=== PATIENT | female | born 1995 ===

== ENCOUNTER 2016-10-12 20:20 | Emergency (ER) | payer MEDICAID ==
[2016-10-12 20:30] VITALS: BMI 19.7
[2016-10-12 20:34] VITALS: TEMP 99
[2016-10-12] MEDS ORDERED: Sodium Chloride 0.9% 1,000 ML IV STA (21:16)
[2016-10-12 21:39] LABS: MEAN CELL VOLUME 81.5 fL (80.0-105.0); MEAN CORPUSCULAR HEMOGLOBIN 27.5 pg (25.0-35.0); MEAN CORPUSCULAR HGB CONC 33.7 g/dl (31.0-37.0); MEAN PLATELET VOLUME 10.7 fl (7.0-11.0); PLATELET COUNT 236 10^3/uL (120.0-450.0); RBC 4.37 10^6/uL (3.5-6.1); RED CELL DISTRIBUTION WIDTH 17.6 % (11.5-14.5); WHITE BLOOD COUNT 19.9 10^3/ul (4.5-11.0)
--- NOTE | 2016-10-12 21:46 | ED PDOC ---
Arrival/HPI - General Chief Complaint: Dizziness/Lightheaded Time Seen by Provider: 10/12/16 20:44 Historian: Patient - History of Present Illness Narrative History of Present Illness (Text): 10/12/16 21:35 A 21 year old female, with currently 14 weeks , presents to the emergency department complaining of dizziness described as lightheadedness, not vertigo, for the past few days. Patient reports her symptom has been constant today causing her to come in for further evaluation. Patient reports having a near-syncopal episode a few days ago and one today. She notes decrease appetite and fluid intake due to her nausea. Patient denies any loss of consciousness, head trauma, fever, chills, vomiting, diarrhea, abdominal pain, urinary symptoms , vaginal bleeding, chest pain, palpitations, shortness of breath or any other complaints. Time/Duration: Other (few days) Symptom Course: Unchanged Quality: Other Context: Home Past Medical History - Provider Review Nursing Documentation Reviewed: Yes - Infectious Disease Hx of Infectious Diseases: None - Genitourinary/Gynecological Hx Sexually Transmitted Diseases: Yes (Trich.) - Psychiatric Hx Substance Use: No - Anesthesia Hx Anesthesia: No Family/Social History - Physician Review Nursing Documentation Reviewed: Yes Family/Social History: No Known Family HX Smoking Status: Former Smoker Hx Alcohol Use: No Hx Substance Use: No Allergies/Home Meds Allergies/Adverse Reactions: Allergies No Known Allergies Allergy (Verified 10/12/16 20:30) Review of Systems - Physician Review All systems were reviewed & negative as marked: Yes - Review of Systems Constitutional: absent: Fevers, Night Sweats Respiratory: absent: SOB Cardiovascular: Other (2 near-syncopal episodes). absent: Chest Pain, Palpitations Gastrointestinal: Nausea, Appetite Changes (/fluids intake). absent: Abdominal Pain, Diarrhea, Vomiting Genitourinary Female: absent: Dysuria, Frequency, Hematuria, Urine Output Changes, Vaginal Bleeding Neurological: Dizziness Physical Exam Vital Signs Reviewed: Yes Vital Signs Temp Pulse Resp BP Pulse Ox 10/13/16 00:37 85 18 120/75 99 10/12/16 22:37 85 18 118/72 98 10/12/16 20:33 99.0 F 88 19 116/69 96 Temperature: Afebrile Blood Pressure: Normal Pulse: Regular Respiratory Rate: Normal Appearance: Positive for: Well-Appearing, Non-Toxic, Comfortable Pain Distress: None Mental Status: Positive for: Alert and Oriented X 3 Finger Stick Blood Glucose: 107 - Systems Exam Head: Present: Atraumatic, Normocephalic, Other (Sunken eyes) Pupils: Present: PERRL Extroacular Muscles: Present: EOMI Conjunctiva: Present: Normal Mouth: Present: Dry Neck: Present: Normal Range of Motion Respiratory/Chest: Present: Clear to Auscultation, Good Air Exchange. No: Respiratory Distress, Accessory Muscle Use Cardiovascular: Present: Regular Rate and Rhythm, Normal S1, S2. No: Murmurs Abdomen: Present: Normal Bowel Sounds. No: Tenderness, Distention, Peritoneal Signs Back: Present: Normal Inspection Upper Extremity: Present: Normal Inspection. No: Cyanosis, Edema Lower Extremity: Present: Normal Inspection. No: Edema Neurological: Present: GCS=15, CN II-XII Intact, Speech Normal Skin: Present: Warm, Dry, Normal Color. No: Rashes Psychiatric: Present: Alert, Oriented x 3, Normal Insight, Normal Concentration Medical Decision Making ED Course and Treatment: 10/12/16 21:35 Impression: A 21 year old female 14 weeks with dizziness. Patient notes having near -syncopal episode and decrease appetite/fluid intake due to nausea. Differential diagnosis : dehydration, hypoglycemia, anemia Plan: -- EKG -- Labs -- Urine culture and Urinalysis -- Zofran and IV fluids -- Reassess and disposition Progress Notes: EKG: NSR at 87 bpm, (-) acute ST changes, as read by PA. On reevaluation, patient reports significant improvement of her symptoms. She denies any dizziness, headache, chest pain, abdominal pain, nausea, vaginal bleeding at this time. Patient reports that she is hungry at this time and would like to try to eat. On exam, patient is laying in bed comfortably, lungs are clear to auscultation, cardiac regular rate and rhythm, abdomen soft with no tenderness. Patient given crackers. Labs reviewed : WBC is 19 (likely due to dehydration), K3.4, UA shows evidence of UTI, urine culture sent. Patient medicated with Rocephin 1 g IV. Patient informed of likely diagnosis of near syncope due to dehydration, all related to nausea and decreased appetite. Patient tolerating crackers and by mouth fluids in the emergency room. Patient advised to follow up with her DIVE SUPERVISOR in 1-2 days without fail. Advised to take medication as prescribed. Return to the emergency room at any time for any new or worsening symptoms. Advised to f/u elevated WBC with her OB. Patient states she fully agrees with and understands discharge instructions. States that she agrees with the plan and disposition. Verbalized and repeated discharge instructions and plan. I have given the patient opportunity to ask any additional questions. - Lab Interpretations Lab Results: 10/12/16 21:00 10/12/16 21:00 Lab Results 10/12/16 22:10: Urine Color Yellow, Urine Appearance Clear, Urine pH 6.5, Ur Specific Lyn[place] 1.010, Urine Protein Negative, Urine Glucose (UA) Negative, Urine Ketones Trace H, Urine Blood Negative, Urine Nitrate Negative, Urine Bilirubin Negative, Urine Urobilinogen 0.2, Ur Leukocyte Esterase Trace H, Urine RBC 0 - 2, Urine WBC 2 - 5, Ur Epithelial Cells 3 - 4, Urine Bacteria Rare 10/12/16 21:00: Sodium 136, Potassium 3.4 L, Chloride 100, Carbon Dioxide 22, Anion Gap 17, BUN 6 L, Creatinine 0.5, Est GFR ( Amer) > 60, Est GFR (Non -Af Amer) > 60, Random Glucose 90, Calcium 9.8, Total Bilirubin 0.5, AST 17, ALT 19, Alkaline Phosphatase 70, Total Protein 8.1, Albumin 4.3, Globulin 3.7, Albumin/Globulin Ratio 1.2, Lipase 62 10/12/16 21:00: WBC 19.9 H, RBC 4.37, Hgb 12.0, Hct 35.6 L, MCV 81.5, MCH 27.5, MCHC 33.7, RDW 17.6 H, Plt Count 236, MPV 10.7, Neutrophils % (Manual) 84 H, Lymphocytes % (Manual) 10 L, Monocytes % (Manual) 6, Platelet Evaluation Normal I have reviewed the lab results: Yes - Medication Orders Current Medication Orders: Discontinued Medications Sodium Chloride (Sodium Chloride 0.9%) 1,000 mls @ 1,000 mls/hr IV .Q1H STA Stop: 10/12/16 22:15 Last Admin: 10/12/16 21:39 Dose: 1,000 mls/hr Ceftriaxone Sodium (Rocephin 1 Gram Ivpb) 1 gm in 100 mls @ 200 mls/hr IVPB STAT STA PRN Reason: Protocol Stop: 10/12/16 23:36 Last Admin: 10/12/16 23:56 Dose: 200 mls/hr Ondansetron HCl (Zofran Inj) 4 mg IVP STAT STA Stop: 10/12/16 21:17 Last Admin: 10/12/16 21:38 Dose: 4 mg - PA / FOAM RUBBER MIXER / Resident Statement MD/DO has reviewed & agrees with the documentation as recorded. - Scribe Statement The provider has reviewed the documentation as recorded by the Scribe Melida Bright Provider Scribe Attestation: All medical record entries made by the Scribe were at my direction and personally dictated by me. I have reviewed the chart and agree that the record accurately reflects my personal performance of the history, physical exam, medical decision making, and the department course for this patient. I have also personally directed, reviewed, and agree with the discharge instructions and disposition. Disposition/Present on Arrival - Present on Arrival Any Indicators Present on Arrival: No History of DVT/PE: No History of Uncontrolled Diabetes: No Urinary Catheter: No History of Decub. Ulcer: No History Surgical Site Infection Following: None - Disposition Have Diagnosis and Disposition been Completed?: Yes Diagnosis: Near syncope, Dehydration, Nausea Disposition: HOME/ ROUTINE Disposition Time: 00:03 Patient Plan: Discharge Condition: STABLE Discharge Instructions (ExitCare): Dehydration (ED), Near Syncope (ED) Print Language: SOMALI Additional Instructions: Thank you for letting us take care of you today. You were treated for near syncope, dehydration, nausea related to . The emergency medical care you received today was directed at your acute symptoms. If you were prescribed any medication, please fill it and take as directed. It may take several days for your symptoms to resolve. Return to the Emergency Department if your symptoms worsen, do not improve, or if you have any other problems. Please contact your OB doctor in 2 days for re-evaluation and follow up. Bring any paperwork you were given at discharge with you along with any medications you are taking to your follow up visit. Our treatment cannot replace ongoing medical care by a primary care provider (PCP) outside of the emergency department. Thank you for allowing the [facility] team to be part of your care today. Prescriptions: Metoclopramide HCl [Reglan] 10 mg PO QID PRN #20 tablet PRN Reason: Nausea/Vomiting Nitrofurantoin Macrocrystals [Macrobid] 100 mg PO BID #20 cap Referrals: PCP,NO [Primary Care Provider] - Follow up with primary Forms: [employer] ([place]), WORK NOTE
[2016-10-12 21:48] LABS: ALB/GLOB RATIO 1.2 (1.1-1.8); ALBUMIN 4.3 g/dL (3.0-4.8); ALT/SGPT 19 U/L (7-56); AST/SGOT 17 U/L (15-39); BLOOD UREA NITROGEN 6 mg/dL (7-21); CALCIUM 9.8 mg/dL (8.4-10.5); GFR AFRICAN-AMERICAN > 60; GFR NON-AFRICAN AMERICAN > 60; LIPASE 62 U/L (23-300)
[2016-10-12 22:17] LABS: LYMPHOCYTE 10 % (22.0-35.0); MONOCYTE 6 % (1.0-6.0); NEUTROPHIL 84 % (50.0-70.0); PLATELET ESTIMATE NORMAL (NORMAL)
[2016-10-12 22:31] LABS: PH,URINE 6.5 (4.7-8.0); URINE BILIRUBIN NEGATIVE (NEGATIVE); URINE BLOOD NEGATIVE (NEGATIVE); URINE GLUCOSE (UA) NEGATIVE (NEGATIVE); URINE LEUKOCYTE ESTERASE TRACE Leu/uL (NEGATIVE); URINE NITRATE NEGATIVE (NEGATIVE); URINE PROTEIN NEGATIVE mg/dL (<30 mg/dL); URINE UROBILINOGEN 0.2 E.U./dL (<1 E.U./dL)
[2016-10-12 22:33] LABS: URINE APPEARANCE CLEAR (CLEAR); URINE COLOR YELLOW (YELLOW)
[2016-10-12 22:38] VITALS: PULSE 85; RESP 18
[2016-10-12 22:45] LABS: URINE BACTERIA RARE (NEG); URINE RBC 0 - 2 /hpf (0-2)
[2016-10-12] MEDS ORDERED: cefTRIAXone 1 gm 1 GM/100 ML BAG IVPB STA (23:07)
[2016-10-13 00:39] VITALS: BP 120/75; O2SAT 99
--- NOTE | 2016-10-14 09:38 | CARD ---
APPROVED REPORT EKG Measurement Heart [id number] <Conclusion> Normal sinus rhythm Normal ECG
== END 2016-10-13 00:39 | disposition home or self-care (01) ==
LOC: ED 20:20
DX: O21.0 Mild hyperemesis gravidarum (principal); Z3A.14 14 weeks gestation of pregnancy; R55 Syncope and collapse; E86.0 Dehydration
CPT/HCPCS: 80053; 81001; 83690; 85025; 87086; 93005; 96361; 96365; 96375; 99285; J0696; J2405; J7040

== ENCOUNTER 2017-03-02 00:48 | Emergency (ER) | payer MEDICAID ==
[2017-03-02 00:49] VITALS: BMI 19.7
[2017-03-02 01:06] VITALS: RESP 18
[2017-03-02] MEDS ORDERED: Sodium Chloride 0.9% 1,000 ML IV STA (01:14)
--- NOTE | 2017-03-02 01:15 | ED PDOC ---
Arrival/HPI - General Chief Complaint: Female Genitourinary Time Seen by Provider: 03/02/17 01:04 Historian: Patient - History of Present Illness Narrative History of Present Illness (Text): 03/02/17 01:11 This 21 yo female presents to this ED c/o nausea, vomiting, and suprapubic pain x 5 hours. Patient denies sob, cp, vaginal bleeding, sick contact, recent travel or dizziness. Time/Duration: Other (5 hours) Context: Home Past Medical History - Provider Review Nursing Documentation Reviewed: Yes - Infectious Disease Hx of Infectious Diseases: None - Reproductive Menopause: No - Genitourinary/Gynecological Hx Sexually Transmitted Diseases: Yes (Trich.) - Psychiatric Hx Substance Use: No - Anesthesia Hx Anesthesia: No Family/Social History - Physician Review Nursing Documentation Reviewed: Yes Family/Social History: Other (noncontributory) Smoking Status: Former Smoker Hx Alcohol Use: No Hx Substance Use: No Allergies/Home Meds Allergies/Adverse Reactions: Allergies No Known Allergies Allergy (Verified 03/02/17 01:06) Review of Systems - Review of Systems Constitutional: Fevers. absent: Fatigue, Weight Change Eyes: Normal ENT: Normal Respiratory: Normal Cardiovascular: Normal Gastrointestinal: Abdominal Pain, Nausea, Vomiting Genitourinary Female: Normal Musculoskeletal: Normal Skin: Normal Neurological: Normal Endocrine: Normal Hemo/Lymphatic: Normal Psychiatric: Normal Physical Exam Vital Signs Temp Pulse Resp BP Pulse Ox 03/02/17 01:03 100.8 F H 98 H 18 133/63 96 Temperature: Febrile Blood Pressure: Normal Pulse: Regular Respiratory Rate: Normal Appearance: Positive for: Well-Appearing, Non-Toxic, Comfortable Pain Distress: None Mental Status: Positive for: Alert and Oriented X 3 - Systems Exam Head: Present: Atraumatic, Normocephalic Pupils: Present: PERRL Extroacular Muscles: Present: EOMI Conjunctiva: Present: Normal Mouth: Present: Moist Mucous Membranes Neck: Present: Normal Range of Motion Respiratory/Chest: Present: Clear to Auscultation, Good Air Exchange. No: Respiratory Distress, Accessory Muscle Use Cardiovascular: Present: Regular Rate and Rhythm, Normal S1, S2. No: Murmurs Abdomen: Present: Normal Bowel Sounds. No: Tenderness, Distention, Peritoneal Signs, Rebound, Guarding Back: Present: Normal Inspection Upper Extremity: Present: Normal Inspection, Normal ROM. No: Cyanosis, Edema Lower Extremity: Present: Normal Inspection, Normal ROM. No: Edema Neurological: Present: GCS=15, CN II-XII Intact, Speech Normal, Motor Func Grossly Intact, Normal Sensory Function, Normal Cerebellar Funct, Gait Normal Skin: Present: Warm, Dry, Normal Color. No: Rashes Psychiatric: Present: Alert, Oriented x 3, Normal Insight, Normal Concentration Medical Decision Making ED Course and Treatment: 03/02/17 02:11 Re-evaluation. Patient feels better. Discussed results and plan with patient who expresses understanding. All questions answered and there is agreement with the plan to discharge home with instructions. Patient stable for discharge. Return if symptoms persist or worsen. Re-evaluation Time: 02:11 Reassessment Condition: Re-examined, Improved - Lab Interpretations Lab Results: 03/02/17 01:23 03/02/17 01:23 Lab Results 03/02/17 01:23: Urine HCG, Qual Negative 03/02/17 01:23: Sodium 140, Potassium 3.8, Chloride 104, Carbon Dioxide 21, Anion Gap 19, BUN 12, Creatinine 0.8, Est GFR ( Amer) > 60, Est GFR (Non- Af Amer) > 60, Random Glucose 115 H, Calcium 10.6 H, Total Bilirubin 0.6, AST 28 , ALT 24, Alkaline Phosphatase 90, Total Protein 9.6 H, Albumin 5.3 H, Globulin Pending, Albumin/Globulin Ratio Pending 03/02/17 01:23: WBC 18.9 H, RBC 4.89, Hgb 14.3, Hct 42.6, MCV 87.1, MCH 29.2, MCHC 33.6, RDW 14.1, Plt Count 277, MPV 11.3 H, Gran % 87.1 H, Lymph % (Auto) 5.9 L, [place] % (Auto) 6.9 H, Eos % (Auto) 0.0 L, Baso % (Auto) 0.1, Gran # 16.45 H, Lymph # 1.1 L, [place] # 1.3 H, Eos # 0.0, Baso # 0.01 I have reviewed the lab results: Yes Interpretation: No clinic. lab abnormalty (mild elevated WBC, it may be secondary to vomiting and diarrhea.) - Medication Orders Current Medication Orders: Sodium Chloride (Sodium Chloride 0.9%) 1,000 mls @ 999 mls/hr IV .Q1H1M STA Stop: 03/02/17 02:14 Last Admin: 03/02/17 01:21 Dose: 999 mls/hr eMAR Start Stop Document 03/02/17 01:21 YP (Rec: 03/02/17 01:21 YP [id number]) Intravenous Solution Start Date 03/02/17 Start Time 01:21 End Date 03/02/17 End time 02:21 Total Infusion Time 60 Discontinued Medications Ondansetron HCl (Zofran Inj) 4 mg IVP STAT STA Stop: 03/02/17 01:16 Last Admin: 03/02/17 01:28 Dose: 4 mg IVP Administration Document 03/02/17 01:28 YP (Rec: 03/02/17 01:28 YP [id number]) Charges for Administration # of IVP Administrations 1 Disposition/Present on Arrival - Present on Arrival Any Indicators Present on Arrival: No History of DVT/PE: No History of Uncontrolled Diabetes: No Urinary Catheter: No History of Decub. Ulcer: No History Surgical Site Infection Following: None - Disposition Have Diagnosis and Disposition been Completed?: Yes Diagnosis: Nonspecific abdominal pain, Diarrhea, Nausea & vomiting Disposition: HOME/ ROUTINE Disposition Time: 02:13 Patient Plan: Discharge Condition: GOOD Discharge Instructions (ExitCare): Acute Nausea and Vomiting (ED), Gastroenteritis (ED) Additional Instructions: Call private doctor for follow up visit in 1-2 days. Take medication as instructed. Return to emergency if symptoms worsen, worsening abdominal pain, or unable to keep anything down on stomach, Drink Pedialyte, and soup. Avoid fatty meals, spicy food, sodas, juice, water, or coffee/tea Prescriptions: Ondansetron ODT [Zofran ODT] 4 mg PO Q4H PRN #15 odt PRN Reason: Nausea/Vomiting Sulfamethoxazole/Trimethoprim [Bactrim DS 800 mg-160 mg] 1 tab PO BID #10 tab Referrals: [facility] [Outside] - Follow up with primary [facility] [Outside] - Follow up with primary Forms: [employer] (Japanese), WORK NOTE
[2017-03-02 01:33] LABS: BASO # 0.01 K/mm3 (0.0-2.0); BASO % 0.1 % (0.0-3.0); GRAN # 16.45 (1.4-6.5); GRAN % 87.1 % (50.0-68.0); HEMATOCRIT 42.6 % (36.0-48.0); LYMPH # 1.1 (1.2-3.4); LYMPH % 5.9 % (22.0-35.0); MEAN CELL VOLUME 87.1 fl (80.0-105.0); MEAN CORPUSCULAR HEMOGLOBIN 29.2 pg (25.0-35.0); MEAN CORPUSCULAR HGB CONC 33.6 g/dl (31.0-37.0); MEAN PLATELET VOLUME 11.3 fl (7.0-11.0); MONO # 1.3 (0.1-0.6); MONO % 6.9 % (1.0-6.0); RED CELL DISTRIBUTION WIDTH 14.1 % (11.5-14.5); WHITE BLOOD COUNT 18.9 10^3/ul (4.5-11.0)
[2017-03-02 01:44] LABS: ALKALINE PHOSPHATASE 90 U/L (38-126); ALT/SGPT 24 U/L (7-56); AST/SGOT 28 U/L (14-36); BILIRUBIN,TOTAL 0.6 mg/dL (0.2-1.3); BLOOD UREA NITROGEN 12 mg/dL (7-21); CALCIUM 10.6 mg/dL (8.4-10.5); CARBON DIOXIDE 21 mmol/L (21-33); CHLORIDE 104 mmol/L (98-107); GFR AFRICAN-AMERICAN > 60; GLUCOSE,RANDOM 115 mg/dL (70-110); POTASSIUM 3.8 mmol/L (3.6-5.0); SODIUM 140 mmol/L (132-148); TOTAL PROTEIN 9.6 g/dL (5.8-8.3)
[2017-03-02] MEDS ORDERED: Tmp-Smz 800 mg-160 mg DS Tab PO STA (02:11)
[2017-03-02 02:39] LABS: ALB/GLOB RATIO 1.2 (1.1-1.8)
[2017-03-02 03:03] VITALS: BP 123/67; PULSE 85; TEMP 99.9; O2SAT 100
== END 2017-03-02 03:03 | disposition home or self-care (01) ==
LOC: ED 00:48
DX: R19.7 Diarrhea, unspecified (principal); R11.2 Nausea with vomiting, unspecified; R10.9 Unspecified abdominal pain
CPT/HCPCS: 80053; 84703; 85025; 96361; 96374; 99284; J2405; J7040

== ENCOUNTER 2018-06-13 18:58 | Emergency (ER) | payer MEDICAID ==
[2018-06-13 19:27] VITALS: BMI 22.8
[2018-06-13 19:32] VITALS: BP 128/62; TEMP 98.5
[2018-06-13] MEDS ORDERED: TDAP Vaccine 0.5 mL Syr IM ONE (20:06)
[2018-06-13 20:50] VITALS: PULSE 69; RESP 19; O2SAT 99
--- NOTE | 2018-06-13 20:50 | ED PDOC ---
Arrival/HPI - General Chief Complaint: Abnormal Skin Integrity Time Seen by Provider: 06/13/18 19:28 Historian: Patient - History of Present Illness Narrative History of Present Illness (Text): 06/13/18 21:11 22-year-old female, who is , currently is 28 weeks , presents complaining of a red, swollen, painful mass to the right upper inner thigh close to her groin for the past several days. Otherwise she reports no fever, chills, abdominal pain, nausea, vomiting, urinary symptoms, vaginal bleeding, vaginal discharge. She has no other complaints. Patient states that she does have an OB that she is regularly following up with for care regarding her current . Past Medical History - Infectious Disease Hx of Infectious Diseases: None - Genitourinary/Gynecological Hx Sexually Transmitted Diseases: Yes (Trich.) - Psychiatric Hx Substance Use: No (denies) - Anesthesia Hx Anesthesia: No Family/Social History Family/Social History: No Known Family HX Smoking Status: Former Smoker Hx Alcohol Use: No (denies) Hx Substance Use: No (denies) Allergies/Home Meds Allergies/Adverse Reactions: Allergies No Known Allergies Allergy (Verified 06/13/18 19:30) Review of Systems - Review of Systems Constitutional: absent: Fatigue, Fevers Gastrointestinal: absent: Abdominal Pain, Nausea, Vomiting Genitourinary Female: absent: Dysuria, Frequency, Hematuria, Vaginal Bleeding, Vaginal Discharge Musculoskeletal: absent: Arthralgias, Back Pain, Neck Pain Skin: Abscess. absent: Rash, Pruritis, Skin Lesions Physical Exam Vital Signs Temp Pulse Resp BP Pulse Ox 06/13/18 20:49 69 19 99 06/13/18 19:32 98.5 F 92 H 18 128/62 100 Temperature: Afebrile Blood Pressure: Normal Pulse: Regular Respiratory Rate: Normal Appearance: Positive for: Well-Appearing, Non-Toxic, Comfortable Pain Distress: None Mental Status: Positive for: Alert and Oriented X 3 - Systems Exam Abdomen: No: Tenderness, Distention, Rebound, Guarding Lower Extremity: Present: Normal Inspection. No: Edema Neurological: Present: GCS=15, CN II-XII Intact, Speech Normal. No: Motor Func Grossly Intact, Normal Sensory Function Skin: Present: Warm, Dry, Normal Color, Abscess (+4x3 cm erythematous, tender, fluctuant abscess to the medial proximal aspect of the right thigh proximal to the right inguinal area.). No: Rashes Lymphatic: No: Inguinal Adenopathy Psychiatric: Present: Alert, Oriented x 3, Normal Insight, Normal Concentration Medical Decision Making ED Course and Treatment: 06/13/18 21:13 Plan : - Tdap IM - Tylenol PO - Clindamycin PO - I&D Patient tolerated incision and drainage of abscess well without any complications or difficulty. Advised to follow up with primary care physician or THRESHING MACHINE OPERATOR after 2 days without fail, for wound check and packing removal, advised if she is unable to see either her PMD or THRESHING MACHINE OPERATOR and to return to the emergency room. Advised to take medication as prescribed. Return to the emergency room at any time for any new or worsening symptoms. Patient states she fully agrees with and understands discharge instructions. States that she agrees with the plan and disposition. Verbalized and repeated discharge instructions and plan. I have given the patient opportunity to ask any additional questions. - Medication Orders Current Medication Orders: Discontinued Medications Acetaminophen (Tylenol 325mg Tab) 650 mg PO STAT STA Stop: 06/13/18 20:07 Last Admin: 06/13/18 20:24 Dose: 650 mg MAR Pain/Vitals Document 06/13/18 20:24 CD (Rec: 06/13/18 20:25 CD [facility] [id number] Pain Reassessment Is This A Pain ReAssessment? No Sleep Is patient sleeping during reassessment? No Presence of Pain Presence of Pain Yes Pain Scale Used Protocol: PSCALES Pain Scale Used Numeric Location Intensity 10 Scale Used Numeric Aggravating Factors Changing Position Alleviating Factors Inactivity Clindamycin HCl (Cleocin) 300 mg PO STAT STA; Protocol Stop: 06/13/18 20:07 Last Admin: 06/13/18 20:24 Dose: 300 mg Tetanus/Reduced Diphtheria/Acell Pertussis (Boostrix Vaccine Inj) 0.5 ml IM .ONCE ONE Stop: 06/13/18 20:07 Last Admin: 06/13/18 20:23 Dose: 0.5 ml Immunization Registry Document 06/13/18 20:23 CD (Rec: 06/13/18 20:23 CD [facility] [id number] [facility]-Date provided 06/13/18 Procedures - Incision and Drainage Site: Abscesses noted to the medial proximal aspect of the right thigh Blade Size: 11 I & D Procedure: betadine prep, sterile drapes applied, sterile dressing applied Progress: Lidocaine w/ epi was used and administered to the area for local infiltration/anesthesia. Abscess drained by PA and produced purulent d/c. Wound packing was inserted, clean dressing was applied. - PA / SOCIAL WORK FACULTY MEMBER / Resident Statement / has reviewed & agrees with the documentation as recorded. Disposition/Present on Arrival - Present on Arrival Any Indicators Present on Arrival: No History of DVT/PE: No History of Uncontrolled Diabetes: No Urinary Catheter: No History of Decub. Ulcer: No History Surgical Site Infection Following: None - Disposition Have Diagnosis and Disposition been Completed?: Yes Diagnosis: Abscess Disposition: HOME/ ROUTINE Disposition Time: 20:30 Patient Plan: Discharge Condition: STABLE Discharge Instructions (ExitCare): Skin Abscess Additional Instructions: Thank you for letting us take care of you today. You were treated for abscess. The emergency medical care you received today was directed at your acute symptoms. If you were prescribed any medication, please fill it and take as directed. It may take several days for your symptoms to resolve. Return to the Emergency Department if your symptoms worsen, do not improve, or if you have any other problems. Please contact your doctor in 2 days for re-evaluation and follow up / or call one of the physicians/clinics you have been referred to that are listed on the Patient Visit Information form that is included in your discharge packet. Bring any paperwork you were given at discharge with you along with any medications you are taking to your follow up visit. Our treatment cannot replace ongoing medical care by a primary care provider (PCP) outside of the emergency department. Thank you for allowing the [facility] team to be part of your care today. Prescriptions: Clindamycin [Cleocin] 300 mg PO TID #30 cap Forms: [employer] (Sammarinese), WORK NOTE
== END 2018-06-13 20:49 | disposition home or self-care (01) ==
LOC: ED 18:58
DX: L02.415 Cutaneous abscess of right lower limb (principal); Z23 Encounter for immunization